=== PATIENT | female | born 1985 | race Caucasian/White ===

== ENCOUNTER 2018-05-22 05:18 | Day surgery (SDC) | payer OTHER ==
[~2018-05-22] VITALS: Ht 162.6 cm; Wt 72.6 kg
--- NOTE | ~2018-05-22 | H ---
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 HISTORY OF PRESENT ILLNESS: The patient is a 32-year-old who had a cyst in her tailbone for the last 8 years. Her first episode was when she was 24 years old. She had an incision and drainage performed in the Emergency Department. The patient has had about 4 drainage procedures, the last one was in November 2016 during . Last , she started complaining of discomfort there again with pain. No fevers or chills. No history of diabetes. No family history of pilonidal disease. The infection always comes in the same particular spot, which is slightly left of the midline in the sacral area. The patient is found to have evidence of pilonidal sinus tract. There is a small indentation in the midline. There are 2 small indentations in the midline likely where the process starts. Because of the recurrent nature, she is here for pilonidal cystectomy. PAST MEDICAL HISTORY: She is healthy. No diabetes, no high blood pressure. No heart disease, no lung disease, no kidney disease, no liver disease, no bleeding disorder, no history of blood clot. MEDICATIONS: None. ALLERGIES: None. PAST SURGICAL HISTORY: Incision and drainage of abscess. FAMILY HISTORY: Mother has a history of breast cancer. SOCIAL HISTORY: The patient is an educator. Does not smoke. Occasionally drinks, but very little. REVIEW OF SYSTEMS: No headache, shortness of breath, chest pain or palpitation. PHYSICAL EXAMINATION: GENERAL: The patient is alert and oriented. HEENT: Pupils react to light. Extraocular muscles are intact. Oropharynx is clear. NECK: Soft and supple. LUNGS: Clear to auscultation. HEART: Regular rate and rhythm. No murmur or gallop. ABDOMEN: Soft, nondistended, nontender. [facility] [address] [place] [address] HISTORY AND PHYSICAL Name: DANIEL TORRES Room #: [facility] M..#: [id number] Admission: Attend Phys: Bernard Durham MD Discharge: Date of : 89 Report #: [id number] EXTREMITIES: No cyanosis, clubbing or edema. SKIN: The patient when examined in the prone position, there is an abscess site. It is slightly left of the midline slightly superior to the skin indentation. She is tender from the site of the abscess towards the midline. No redness detected currently. IMPRESSION: The patient with history of pilonidal abscess that was drained multiple times in the past. She started to have recurrent issue last week. The patient is recommended, because of the recurrent nature, to have a pilonidal cystectomy. She is brought in for the procedure. The patient understands the procedure, the need for her being a prone position. The patient wishes to proceed. Risk of recurrence discussed. Hopefully, we can close this primarily. By: [id number] Bernard Durham MD /nt
--- NOTE | ~2018-05-22 | O ---
[facility] [place] [address] OPERATIVE REPORT Name: DANIEL TORRES Room #: DEP [facility]..#: [id number] Admission: 05/22/18 Attend Phys: Bernard Durham MD Discharge: 05/22/18 Date of : 89 Report #: [id number] THIS REPORT FOR: //name// CC: [facility] physician/PCP Bernard Durham DATE OF SERVICE: 05/22/2018 PREOPERATIVE DIAGNOSIS: Pilonidal abscess with sinus tract. POSTOPERATIVE DIAGNOSIS: Pilonidal abscess with sinus tract. PROCEDURES PERFORMED: Pilonidal cystectomy. SURGEON: Bernard Durham M.D. ANESTHESIA: General anesthesia. COMPLICATIONS: None. ESTIMATED BLOOD LOSS: 30 mL. DESCRIPTION OF PROCEDURE: The patient was in the prone position. Her site of the abscess was soft when I saw her in the office. She was put on antibiotics; however, today she comes in, the abscess is tense and much more inflamed. The surrounding tissue is also thickened. Since she is already here, instead of just doing an incision and drainage of this, I decided to proceed with a pilonidal cystectomy so she would not have to come back again. I did aspirate the fluid, but not very much came out. However, with manipulation some of the pus did come out through a low opening in the midline, which confirms a sinus tract. The marking pen was used to draw out the margins of the sinus tract, the abscess and the midline indentations. This was incised sharply. Cautery was used to dissect the subcutaneous tissue. I did stay away from the abscess completely, did not cut into any pus. The lateral aspect of it was more normal tissue. The superior medial aspect where the abscess is located did have some thickened tissue, but I was pretty sure I got all the way around it. Specimen was then taken off and then sent to pathology. The dissection was carried down to the fascia underneath. I did close the subcutaneous tissue inferiorly and brought the skin together. The rest of the wound was then marsupialized. The skin was folded down to the fascia level and sewn with multiple interrupted 3-0 PDS suture. The wound was then packed with saline gauze wet to dry and then 4 x [facility] [address] [place] [address] OPERATIVE REPORT Name: DANIEL TORRES Room #: DEP [facility]..#: [id number] Admission: 05/22/18 Attend Phys: Bernard Durham MD Discharge: 05/22/18 Date of : 89 Report #: [id number] 4 was placed over this area, ABD and bandages were placed. The patient was then awakened, taken to recovery room. By: [id number] Bernard Durham MD /nt
[~2018-05-22 05:18] MED LIST: AMOX TR-K CLV1 EAC4 PO; NORCO 5-325 TA1 EACH PO
[2018-05-22 12:34] LABS: HEMOGLOBIN 10.8 gm/dL (12.0-15.0)
[2018-05-22 13:13] VITALS: BP 113/59
[2018-05-22 15:42] VITALS: BP 113/59
--- NOTE | 2018-05-25 17:06 | PATH ---
[facility] [address] [facility] [place] [address] PATHOLOGY RPT PROCEDURE Name: VIRA TORRESNA Room #: DEP [facility] [place] M.R.#: [id number] Admission: 05/22/18 Date of : 89 Discharge: 05/22/18 Report #: [id number] Path Case #: [id number] [facility] Accession Number: [id number] . 01 Material submitted: . PILONIDAL CYST . 01 Clinical history: . Pilonidal cyst. . 02 Diagnosis: Pilonidal cyst, pilonidal cystectomy: - Marked acute inflammation associated with abscess formation within deep subcutaneous tissue, history of pilonidal cyst. . (IUV:mml; 05/25/2018) QLM/05/25/2018 . 02 Electronically signed: . Regina Nieves MD, Pathologist NPI- [id number] . 01 Gross description: . Received in formalin labeled "Yahaya, Daniel, pilonidal cyst" is a 7.5 x 5.5 x 5.0 cm excision of dark brown skin and underlying yellow-lyle lobulated fibroadipose tissue. Upon sectioning, a lyle-white fibrotic cystic structure is identified in the deep tissue measuring 3.5 x 2.0 x 2.0 cm. A admitting representative section is submitted in cassette A1. ([facility]; 05/24/2018) SYC/SYC . 02 Pathologist provided ICD-10: L05.91 . 02 CPT . 618646 Specimen Comment: A courtesy copy of this report has been sent to Specimen Comment: [phone]. Specimen Comment: Report sent to Performed at: [address], [place] [id number] MD Cecil Verduzco MD Phone: [phone] Performed at: [address] [id number] MD Regina Nieves MD Phone: [phone]
== END 2018-05-22 16:15 | disposition home or self-care (01) ==
LOC: TBA 05:18 → OR 05:18 → TBA 05:19 → OR 14:11
PROVIDERS: Surgery
DX: L05.02 Pilonidal sinus with abscess (principal); Z98.890 Other specified postprocedural states; Z86.2 Personal history of diseases of the blood and blood-forming organs and certain disorders involving the immune mechanism; Z79.899 Other long term (current) drug therapy; Z80.3 Family history of malignant neoplasm of breast; Z79.891 Long term (current) use of opiate analgesic
CPT/HCPCS: 50010; 50101; 50386; 50403; 56525; 56526; 56527; 62110; 62900; 70005